=== PATIENT | male | born 1955 | race Two or more races ===

== ENCOUNTER 2017-11-02 05:58 | Day surgery (SDC) | payer OTHER ==
[~2017-11-02 05:58] MED LIST: ATIVAN1 M1 PO
== END 2017-11-02 17:10 | disposition home or self-care (01) ==
LOC: CIR.AMB 05:58
DX: K40.90 Unilateral inguinal hernia, without obstruction or gangrene, not specified as recurrent (principal)

== ENCOUNTER 2025-03-29 10:53 | Outpatient (CLI) | payer OTHER | END 2025-03-29 10:56 | disposition home or self-care (01) | LOC: RAD 10:53 | DX: Z01.810 Encounter for preprocedural cardiovascular examination (principal); J18.0 Bronchopneumonia, unspecified organism ==

== ENCOUNTER 2025-04-02 06:28 | Day surgery (SDC) | payer OTHER ==
[2025-04-02] MEDS ORDERED: BUPIVACAINE HCL 30 ML VIAL IJ ONE (10:00)
[2025-04-02] MEDS ORDERED: CEFAZOLIN SODIUM 1,000 MG VIAL IV ONE (10:00)
[2025-04-02] MEDS ORDERED: ISOPROPYL ALCOHOL 30 ML OUNCE TOP ONE (10:00)
[2025-04-02] MEDS ORDERED: SUGAMMADEX SODIUM 200 MG/2 ML VIAL IV ONE (11:15)
[2025-04-02] MEDS ORDERED: ONDANSETRON HCL 2 MG/ML VIAL IV ONE (11:55)
[2025-04-02] MEDS ORDERED: MORPHINE SULFATE 4 MG/ML VIAL IV ONE (12:00)
[2025-04-02] MEDS ORDERED: MORPHINE SULFATE 2 MG/ML CARTRIDGE IV ONE (12:30)
== END 2025-04-02 16:15 | disposition home or self-care (01) ==
LOC: CIR.AMB 06:28
PROVIDERS: ATTEND Orthopaedic Surgery Hand Surgery
DX: S52.532A Colles' fracture of left radius, initial encounter for closed fracture (principal); M24.532 Contracture, left wrist
CPT/HCPCS: 25609; 25118; 25280; L8699

== ENCOUNTER 2025-05-16 08:56 | Outpatient (CLI) | payer OTHER | END 2025-05-16 08:59 | disposition home or self-care (01) | LOC: TOM 08:56 | PROVIDERS: ATTEND Surgery | DX: R31.0 Gross hematuria (principal) | CPT/HCPCS: 74178; Q9965 ==